=== PATIENT | female | born 1970 | race Hispanic/Latino ===

== ENCOUNTER 2020-08-14 21:44 | Emergency (ER) | payer OTHER ==
--- OUTSIDE RECORDS SUMMARY | 2020-08-14 21:47 | XMS REPORT | Continuity of Care Document ---
:1970 Author Organization [facility] t Address [address] [place] [address] Care Team Providers Name Role Phone Elliott Hernandez DO Primary Care Physician Donita Qugiley RN Attending Clinician Unavailable Pcp, Does Not Have A Attending Clinician Lab, Fam Pob I Attending Clinician Unavailable Problems Condition Condition Condition Status Onset Resolution Last Treating Co mments Source Name Details Category Date Date Treatment Clinician Date Cellulitis Cellulitis Disease Active [place] of right of right 04-22 Method i upper upper 00:00: st extremity extremity 00 Allergies, Adverse Reactions, Alerts Allergy Allergy Status Severity Reaction(s) Onset Inactive Treating Comm ents Source Name Type Date Date Clinician Nuvia Jackson Active Other (See Seizures [place] perazine ty to Comments) 04-22 Metho di adverse 00:00: st reaction 00 s to drug Compazin Adverse [facility] Social History Social Habit Start Date Stop Date Quantity Comments Source Sex Assigned At [facility] ethodist Alcohol intake 2016-10-16 2016-10-16 [facility] 00:00:00 non-drinker of alcohol (finding) Smoking Status Start Date Stop Date Source Never smoker Willi quintero Medications Ordered Filled Start Stop Current Ordering Indication Dosage Frequency Signature Comments Components Source Medication Medication Date Date Medication? Clinician (SIG) Name Name ALPRAZolam 2015-07 Yes .5mg QD Take 0.5 [place] (XANAX) 0.5 0-10 mg by Methodi MG tablet 16:40: mouth st 19 daily. metoprolol 2015-07 Yes 50mg QD Take 50 mg [place] succinate 0-10 by mouth Method i XL 16:40: daily. st (TOPROL-XL) 19 50 MG 24 hr tablet traMADol 2015-07 Yes 50mg Q6H Take 50 mg [place] (ULTRAM) 50 0-10 by mouth Meth margarette mg tablet 16:40: every 6 st 19 (six) hours as needed for moderate pain ((Alternat ing with Tylenol w/cod)). acetaminoph 2015-07 Yes 1{tbl} Q6H Take 1 [place] en-codeine 0-10 tablet by Meth margarette (TYLENOL 16:40: mouth st #3) 300-30 19 every 6 mg per (six) tablet hours as needed for moderate pain ((Alternat ing with Tramadol)) . Gabapentin Gabapentin Yes Rico TK [address] [facility] TID UTD [facility] Losartan Losartan Yes Rico TK [address] [facility] Potassium Potassium [facility] QD [facility] Vitamin D Vitamin D Yes Rico TK [address] [facility] (Ergocalcif (Ergocalcif Rollins Q WK [facility] Bisoprolol- Bisoprolol- Yes Rico TK [address] [facility] Hydrochloro Hydrochloro Rollins QD [facility]ide th[facility]ide [facility] Lorazepam Lorazepam Yes Rico [address] [facility] Fluticasone Fluticasone Yes Rico SHAKE LQ [facility] Propionate Propionate Rollins AND U 1 [facility] QD [facility] IN THE l MORNING Outpati ent Clinics Duloxetine Duloxetine Yes Rico [address] [facility] HCl HCl [facility] Procedures This patient has no known procedures. Plan of Care Planned Activity Planned Date Details Comments Source Future Scheduled 2020-02-23 INFLUENZA VACCINE [place] [facility] 00:00:00 [code = INFLUENZA VACCINE] Future Scheduled 2019 BREAST CANCER [facility] thodist Test 00:00:00 SCREENING [code = BREAST CANCER SCREENING] Future Scheduled 2019 COLONOSCOPY SCREENING [place] [facility] Test 00:00:00 [code = COLONOSCOPY SCREENING] Future Scheduled 2019 SHINGLES VACCINES [place] [facility] 00:00:00 (#1) [code = SHINGLES VACCINES (#1)] Future Scheduled 1990 Screening for [facility] thodist Test 00:00:00 malignant neoplasm of cervix (procedure) [code = 763719378] Future Scheduled 1985 COVID-19 VACCINE (1 [place] [facility] Test 00:00:00 of 2) [code = COVID-19 VACCINE (1 of 2)] Encounters Start End Encounter Admission Attending Care Care Encounter Source Date/Time Date/Time Type Type Clinicians Facility Department ID 2020-08-04 2020-08-04 Outpatient [facility] [id number] [facility]00 [facility] 2020-07-08 2020-07-08 Letter KEANU Quigley [id number] 00:00:00 00:00:00 (Out) Donita ORTIZ [id number] HOSPITAL [id number] 2020-07-08 2020-07-08 Telephone PcpKEANU [id number] 00:00:00 00:00:00 Patient DIANA [id number] Does Not HOSPITAL [id number] Have A [id number] 2020-07-06 2020-07-06 Laboratory Lab, [facility] [id number] 13:35:14 13:55:14 Only Fam Pob I Health [id number] Critz [id number] Professio [id number] nal [address] 2020-06-16 2020-06-16 [facility] [id number] [facility] 2020-05-27 2020-05-27 [facility] [id number] [facility] 2020-03-27 2020-03-27 [facility] [id number] [facility] 13:20:00 13:20:00 t [employer] [facility] Medicine Medicine Outpati ent Clinics 2020-01-23 2020-01-23 [facility] [id number] 14:30:00 14:30:00 t [facility] Medicine Outpati ent Clinics 2019-12-26 2019-12-26 [facility] [id number] 15:14:00 15:14:00 t [employer] [facility] Medicine Outpati ent Clinics 2019-12-26 2019-12-26 [facility] [id number] 14:45:00 14:45:00 t [employer] [facility] Medicine Outpati ent Clinics 2019-12-06 2019-12-06 [facility] [id number] 13:30:00 13:30:00 t [employer] [facility] Medicine Outpati ent Clinics 2019-11-23 2019-11-23 [facility] [id number] 14:15:00 14:15:00 t [employer] [facility] Medicine Outpati ent Clinics 2019-11-22 2019-11-22 [facility] [id number] 15:37:00 15:37:00 t [facility] Immediately [employer] [facility] Medicine Outpati ent Clinics 2019-11-20 2019-11-20 [facility] [id number] 13:20:00 13:20:00 [facility] Medicine Outpat[facility] Clinics Results This patient has no known results.
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
--- OUTSIDE RECORDS SUMMARY | 2020-08-14 21:47 | XMS REPORT | Summary of Care ---
:1970 Author Organization [facility] Address [address] [place] [address] Care Team Providers Name Role Phone Robert Robertson Primary Care Provider Reason for Visit Reason Comments LAB covid testing- exposure Encounter Details Date Type Department Care Team Description 07/06/2020 Laboratory Only [facility] Family David, Sadia, ELECTRONICS RESEARCH ENGINEER [address] [place] [address] Exposure to Medicine - [facility], Adc Fam Pob I SARS-associated [address] [facility] coronaviru s ([address] Drive Dx) [place] [address] Allergies Active Allergy Reactions Severity Noted Date Comments Prochlorperazine Other - See comments 03/09/2013 bakari ji documented as of this encounter (statuses as of 07/06/2020) Medications Medication Sig Dispensed Refills Start Date End Date Status itraconazole 100 mg Take 100 mg by 0 Active capsule mouth 2 (two) times daily with meals. tramadol-acetaminophe Take 1 tablet by 0 Active n 37.5-325 mg per mouth every 8 tablet (eight) hours as needed for Pain. ERGOCALCIFEROL, Take 1 tablet by 0 Active VITAMIN D2, (VITAMIN mouth weekly. D ORAL) metoprolol tartrate Take 100 mg by 0 Active 100 mg tablet mouth daily. proMETHazine 25 mg Take 1 tablet by 12 tablet 0 12/25/2016 Active tablet mouth every 6 (six) hours as needed for Nausea and Vomiting (N/V). ranitidine (ZANTAC) Take 1 tablet by 30 tablet 1 12/25/2016 Active 150 mg tablet mouth 2 (two) times daily. Follow up with your MD for further evaluation and treatment. acetaminophen-codeine Take 1 tablet by 20 tablet 0 12/25/2016 Active (TYLENOL-CODEINE #3) mouth every 6 (six) 300-30 mg tablet hours as needed for Pain (scale 4-6) (for cough). documented as of this encounter (statuses as of 07/06/2020) Active Problems Problem Noted Date HELDER favor benign 10/31/2013 Abnormal glandular Papanicolaou smear of cervix 2013 Overview: Atypical glandular with positive HPV. colpo done 11/01/2013 Positive HPV 09/26/2013 Overview: 6 month repeat pap smear Generalized anxiety disorder 03/09/2013 Tubal ligation status 03/09/2013 Insomnia 03/09/2013 documented as of this encounter (statuses as of 07/06/2020) Resolved Problems Problem Noted Date Resolved Date Papanicolaou smear of cervix with atypical squamous cells of 03/15/2013 11/01/2013 undetermined significance (ASC-US) Overview: Repeat pap smear at 6 (08/2013) and 12 m [facility] Encounter for routine gynecological examination 03/09/2013 11/01/2013 Overview: Medical records received. [facility]- 11[facility]2011. CT scan shows 3cm right ovarian cyst. Referral written for pelvic US -04/12/20 13. ICD10 Diagnosis Term Ehs Manager Utility Essential hypertension 03/09/2013 09/21/2013 Overview: ICD10 Diagnosis Term Ehs Manager Utility Need for prophylactic vaccination with combined 03/09/2013 09/21/2013 gaythhdjfd-gfakkmo-fljhcblxq (DTP) vaccine documented as of this encounter (statuses as of 07/06/2020) Immunizations Name Administration Dates Next Due TDAP 03/09/2013 Td 03/09/2001 documented as of this encounter Social History Tobacco Use Types Packs/Day Years Used Date Never Smoker Smokeless Tobacco: Never Used Alcohol Use Drinks/Week oz/Week Comments No Sex Assigned at Date Recorded Not on file COVID-19 Exposure Response Date Recorded In the last month, have you been in contact with Yes 07/06/2020 1:39 PM BANQUET LEAD someone who was confirmed or suspected to have Coronavirus / COVID-19? documented as of this encounter Last Filed Vital Signs Not on filedocumented in this encounter Nursing Notes Lulú Fernandez MA - 07/06/2020 1:40 PM CSTAdrimilton López is a 49 year old female here for COVID Screening with a Nasopharyngeal Swab All droplet and contact precautions taken with appropriate PPE worn while interacting with patient. ? Goggles ? N95 Mask ? Gloves ? Gown Patient educated on plan of care for visit, swabbing technique, risks and benefits of test and length of time to receive results. Verbal consent obtained to perform test. CDC Fact Sheet for Patients nCoV Diagnostic Panel dated 10/07/2019 and Factsheet What to Do if Sick with COVID 19 09/17/19 provided. Patient swabbed per appropriate nasopharyngeal technique, and patient tolerated well. Patient was discharged from the testing clinic in stable condition. Lulú Quinones MA 07/06/2020 1:39 PM Bilate nares swabbed during COVID19 nasopharyngeal swab. UET LEAD documented in this encounter Plan of Treatment Name Type Priority Associated Diagnoses Order S chedule COVID-19 (MOLECULAR LAB Routine Exposure to Expected : 07/06/2020, TESTING SARS-associated Expires: 021 NUCLEIC ACID coronavirus AMPLIFICATION) documented as of this encounter Results Not on filedocumented in this encounter Visit Diagnoses Diagnosis Exposure to SARS-associated coronavirus - Primary documented in this encounter Additional Health Concerns Infection Onset Date Last Indicated Resolved Time COVID-19 Rule Out 07/06/2020 07/06/2020 documented as of this encounter Insurance Payer Benefit Plan / Subscriber ID Effective Dates Phone Addre ss Type Group [facility] [place] [facility] [id number] 2016-Present Medicaid HEALTH PLAN - HEALTH MANAGED MEDICAID documented as of this encounter
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
--- OUTSIDE RECORDS SUMMARY | 2020-08-14 21:47 | XMS REPORT | Clinical Summary ---
:1970 Author Organization [facility] Address [address] [place] [address] Care Team Providers Name Role Phone Elliott Hernandez DO Primary Care Provider Allergies Active Allergy Reactions Severity Noted Date Comments Prochlorperazine Other (See Comments) High 04/22/2016 Vitaliy ji Medications Medication Sig Dispensed Refills Start Date End Date Status ALPRAZolam (XANAX) Take 0.5 mg by 0 Active 0.5 MG tablet mouth daily. metoprolol succinate Take 50 mg by mouth 0 Active XL (TOPROL-XL) 50 MG daily. 24 hr tablet traMADol (ULTRAM) 50 Take 50 mg by mouth 0 Active mg tablet every 6 (six) hours as needed for moderate pain ((Alternating with Tylenol w/cod)). acetaminophen-codeine Take 1 tablet by 0 Active (TYLENOL #3) 300-30 mouth every 6 (six) mg per tablet hours as needed for moderate pain ((Alternating with Tramadol)). Active Problems Problem Noted Date Cellulitis of right upper extremity 04/22/2016 Surgical History Surgery Date Site/Laterality Comments TONSILLECTOMY ABDOMINAL SURGERY gallstones rem bebeto INCISION AND DRAINAGE, LOWER 04/28/2016 Right Pro cedure: EXCISIONAL EXTREMITY DEBRIDEMENT OF R IGHT UPPER EXTREMITY ESCHAR /ULCER, POSSIBLE V.A.C P LACEMENT; Surgeon: Evette Dempsey MD; Location: [facility]; Service: General ; Laterality: Righ t; Medical History Medical History Date Comments Hypertension Clavicle fracture Rib fractures Gallstone Social History Tobacco Use Types Packs/Day Years Used Date Never Smoker Alcohol Use Drinks/Week oz/Week Comments No Sex Assigned at Date Recorded Not on file Last Filed Vital Signs Not on file Plan of Treatment Health Maintenance Due Date Last Done Comments COVID-19 VACCINE (1 of 2) 1985 CERVICAL CANCER SCREENING 1990 BREAST CANCER SCREENING 2019 COLONOSCOPY SCREENING 2019 SHINGLES VACCINES (#1) 2019 INFLUENZA VACCINE 02/23/2020 Implants Implanted Type Area Phd Intern Device Identifier Shelf Exp iration Model / Date Serial / L ot Breast Implants Results Not on fileafter 08/14/2019 Insurance Payer Benefit Plan / Subscriber ID Effective Dates Phone Addre ss Type Group [facility] [id number] 2016-Present [facility] Advance Directives For more information, please contact: [phone] Type Date 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
--- OUTSIDE RECORDS SUMMARY | 2020-08-14 21:48 | XMS REPORT | Summary of Care ---
:1970 Author Organization [facility] Address [address] [place] [address] Care Team Providers Name Role Phone Robert Robertson Primary Care Provider Encounter Details Date Type Department Care Team Description 07/08/2020 Letter (Out) [facility] Donita Quigley, IVÁN [address] [place] [phone] [place] [address] Allergies Active Allergy Reactions Severity Noted Date Comments Prochlorperazine Other - See comments 03/09/2013 bakari ji documented as of this encounter (statuses as of 07/08/2020) Medications Medication Sig Dispensed Refills Start Date [...] as of this encounter (statuses as of 07/08/2020) Active Problems Problem Noted Date HELDER favor benign 10/31/2013 Abnormal glandular Papanicolaou smear of cervix 2013 Overview: Atypical glandular with positive HPV. colpo done 11/01/2013 Positive HPV 09/26/2013 Overview: 6 month repeat pap smear Generalized anxiety disorder 03/09/2013 Tubal ligation status 03/09/2013 Insomnia 03/09/2013 documented as of this encounter (statuses as of 07/08/2020) Resolved Problems Problem Noted Date Resolved Date Papanicolaou smear of cervix with atypical squamous cells of 03/15/2013 11/01/2013 undetermined significance (ASC-US) Overview: Repeat pap smear at 6 (08/2013) and 12 m [facility] Encounter for routine gynecological examination 03/09/2013 11/01/2013 Overview: Medical records received. [facility]- 11/2011. CT scan shows 3cm right ovarian cyst. Referral written for pelvic US -04/12/20 13. 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 Need for prophylactic vaccination with combined 03/09/2013 09/21/2013 uvpqeckgyo-[id number] (DTP) vaccine documented as of this encounter (statuses as of 07/08/2020) Immunizations Name Administration Dates Next Due TDAP 03/09/2013 Td 03/09/2001 documented as of this encounter Social History Tobacco Use Types Packs/Day Years Used Date Never Smoker Smokeless Tobacco: Never Used Alcohol Use Drinks/Week oz/Week Comments No Sex Assigned at Date Recorded Not on file COVID-19 Exposure Response Date Recorded In the last month, have you been in contact with Yes 07/06/2020 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 documented as of this encounter Last Filed Vital Signs Not on filedocumented in this encounter Plan of Treatment Health Maintenance Due Date Last Done Comments Depression Screening 1981 Breast Cancer Screening 04/30/2014 04/30/2013 (MAMMOGRAM) PAP SMEAR 09/21/2016 09/21/2013, 03/09/2013 COLON CANCER SCREENING ANNUAL 2019 FIT/FOBT COLON CANCER SCREENING FIT DNA 2019 EVERY 3 YEARS COLON CANCER SCREENING 2019 SIGMOIDOSCOPY EVERY 5 YEARS COLONOSCOPY 2019 Colorectal Cancer Screening 2019 Zoster Recombinant Vaccine 2019 (SHINGRIX) (1 of 2) INFLUENZA VACCINE (#1) 2020 DTaP,Tdap,and Td Vaccines (2 - 03/09/2023 03/09/2013, Td) 03/09/2001 PNEUMOCOCCAL 0-64 YEARS Aged Out No longe r eligible based COMBINED SERIES on patient's age to complete this to pic documented as of this encounter Results Not on filedocumented in this encounter Insurance Payer Benefit Plan / Subscriber ID Effective Dates Phone Addre ss Type Group [place] [facility] [place] [id number] 2016-Present Medicaid HEALTH PLAN - HEALTH MANAGED MEDICAID documented as of this encounter
--- OUTSIDE RECORDS SUMMARY | 2020-08-14 21:48 | XMS REPORT | Summary of Care ---
:1970 Author Organization [facility] Address [address] [place] [address] Care Team Providers Name Role Phone Robert Robertson Primary Care Provider Reason for Visit Reason Comments Results text covid results Encounter Details Date Type Department Care Team Description 07/08/2020 Telephone [facility] Pcp, Patient Does Results (text covid [address] [place] [address] Not Have A results) [address] [facility] [place], [place] [phone] Allergies Active Allergy Reactions Severity Noted Date [...] smear at 6 (08/2013) and 12 m [facility] Encounter for routine gynecological examination 03/09/2013 11/01/2013 Overview: Medical records received. [facility]- 11/2011. CT scan shows 3cm right ovarian cyst. Referral written for pelvic US -04/12/20 13. 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 documented as of this encounter Last Filed Vital Signs Not on filedocumented in this encounter Miscellaneous Notes Telephone Encounter - Donita Quigley RN - 07/08/2020 12:53 PM [facility] SARS-CoV-2 NAAT Not Detected Not Detected Letter mailed. I informed the patient of her results. Donita Rojas elephone Encounter - Mikaela Arroyo - 07/08/2020 12:47 PM CSTAdrimilton López is a 49 year old female patient is calling and would like to get a text on the covid 19 results. documented in this encounter Plan of Treatment Health [...] Effective Dates Phone Addre ss Type Group [place] [facility] [place] [id number] 2016-Present Medicaid HEALTH PLAN - HEALTH MANAGED MEDICAID documented as of this encounter
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
--- NOTE | 2020-08-14 22:38 | ER ---
Nurse's Notes [facility] Name: Radha López Age: 50 yrs Sex: Female : 1970 Arrival Date: 08/14/2020 Time: 21:56 Bed External Waiting Private MD: Diagnosis: Presentation: 08/14 21:58 Acuity: KIN 3 sg Vital Signs: 21:57 Pulse 89; Resp 20 S; Pulse Ox 99% on R/A; sg ED Course: 21:56 Patient arrived in ED. es 21:58 Triage completed. sg Administered Medications: No medications were administered Outcome: 22:38 Patient left the ED. sg Signatures: Raciel Gruber RN RN sg Regina Lema
[2020-08-14 23:06] VITALS: O2SAT 99
== END 2020-08-14 22:38 | disposition left against medical advice (07) ==
LOC: ER 21:44
DX: Z53.21 Procedure and treatment not carried out due to patient leaving prior to being seen by health care provider (principal)
CPT/HCPCS: 99281

== ENCOUNTER 2020-10-14 09:28 | Day surgery (SDC) | payer OTHER ==
[2020-10-08 12:10] LABS: Urine Appearance CLOUDY; Urine Blood NEGATIVE (NEG); Urine Color YELLOW; Urine Glucose NEGATIVE (NEG); Urine Protein NEGATIVE (NEG); Urine Urobilinogen 0.2 mg/dL (0.2-1.0)
[2020-10-08 12:12] LABS: Urine Bilirubin 1+ (NEG); Urine Microscopic Reflex ORDER UMIC
[2020-10-08 12:15] LABS: Basophils % 0.2 % (0-1.3); Hematocrit 38.5 % (36.0-45.0); Lymphocytes % 38.9 % (15.3-44.8); MPV 9.3 fL (7.6-11.3); RBC Red Blood Cell Count 4.37 M/uL (3.86-4.86)
[2020-10-08 12:59] LABS: Urine Bacteria >50 /HPF (<20); Urine Mucus LIGHT /HPF (NONE SEEN); Urine RBC <5 /HPF (NONE SEEN)
[2020-10-14] MEDS ORDERED: Ringers Lactate 1,000 ML IV ONE (10:03)
[2020-10-14] MEDS ORDERED: CEFAZOLIN/SWI 2gm 2 GM/20 ML SYR ONE (10:16)
[2020-10-14] MEDS ORDERED: MIDAZOLAM HCL 2 MG/2 ML INJ ONE (11:59)
[2020-10-14] MEDS ORDERED: LIDOCAINE JELLY 2% 5 ML SYRINGE TOP ONE (12:09)
[2020-10-14] MEDS ORDERED: LIDOCAINE 1% MPF 5 ML VIAL ONE (12:11)
[2020-10-14] MEDS ORDERED: propofoL 200 MG/20 ML VIAL IV ONE (12:11)
[2020-10-14] MEDS ORDERED: FENTANYL CITR 100 MCG/2 ML ONE (12:11)
[2020-10-14] MEDS ORDERED: KETOROLAC 30 MG/ML INJ ONE (12:30)
[2020-10-14] MEDS ORDERED: dexAMETHasone 10 MG/ML VIAL ONE (12:30)
[2020-10-14] MEDS ORDERED: ONDANSETRON 4 MG/2 ML VIAL ONE (12:36)
[2020-10-14] MEDS ORDERED: EPHEDRINE SULF 50 MG/ML VIAL ONE (12:39)
[2020-10-14] MEDS ORDERED: NS 0.9% VIAL 10 ML ONE (12:39)
[2020-10-14] MEDS ORDERED: ACETAMINOPHEN 500 MG TAB ONE (14:30)
[2020-10-14 14:45] VITALS: TEMP 97; O2SAT 98
[2020-10-14 14:48] VITALS: BP 142/83
--- NOTE | 2020-10-16 00:27 | OP ---
Date of Procedure: 10/14/2020 Surgeon: Donna Gan MD Preoperative Diagnosis: Stress urinary incontinence. Postoperative Diagnosis: Stress urinary incontinence. Procedure: Cystourethroscopy and urethral bulking with Bulkamid. Anesthesia: General with LMA. Specimens: No specimens. Complications: No complications. Drains: No drains. Condition: Stable. 1.2 mL of the Bulkamid was used for this patient and an adequate cushion around the urethra was obtai kindra. Indications: The patient is a 50-year-old female with stress urinary incontinence significant enough to cause problems. Very clear positive cough stress test was noted in the office. The patient karissa red to have a minimally invasive treatment. Kegel's have been discussed with biofeedback . However, despite this, the patient has been unable to control the urinary leakage. She had urodyna teresa testing done about 2 years ago. Her complaint has continued to be progressively worse. At that time, her maximal urethral closure pressure was 140 and so we had just waited and conservatively mike ged her, but currently she does have significant strings on the cough stress test and hypermobility w as noted as well. Discussed about the different options including pelvic floor physical therapy, con tinued observation with Kegel's, urethral bulking as well as mid urethral sling. Patient wanted to p roceed with the urethral bulking. After understanding the benefits and risks, she was consented and she was brought to the OR. Procedure In Detail: 2 g of Ancef were given preop and she was taken back to the OR, placed in a sup ine fashion. General anesthesia was given. Placed in a dorsal lithotomy position using Joe stirru ps. Vulva, vagina, and perineum prepped and draped in a sterile fashion. . A regular cys toscope, 17-Korean sheath, 30-degree lens was used with normal saline to perform a cystourethroscopy after the bladder was filled to 300 mL. The base of the bladder trigone, both ureteric orifices, dom e of the bladder, both lateral benson and urethra were all well inspected. No evidence of any tumors, diverticula, or stones. The bladder was then drained. Then Bulkamid rigid cystoscope was taken wit h the standard light cable and 1 L normal saline back with a drip stand, was set up. K-Y Jelly was a pplied to the tip of the sheath and then the sheath and the scope were introduced into the urethra. The water inflow was adjusted to produce an adequate stream. The needle was then placed 3/4 of the w ay into the needle channel of the rotatable sheath without exposure outside the tip and then entire s ystem was then advanced into the urethra until the bladder was visualized and inspected. The Bulkami d needle was then advanced into the needle channel on the rotatable sheath until the tip of the sheat h was adjusted into the bladder neck. The sheath was then rotated to 5 o'clock position. The needle was then extended into the bladder until 2 cm dk on the needle was visible. Then, the Bulkamid sy stem was retracted until the tip of the needle was resting on the bladder neck. The needle was then retracted into the sheath and approximately 1.5 cm from the bladder neck, the Bulkamid system was the n pressed parallel against the urethral wall. The needle was advanced then into submucosal tissue en suring that the bevel of the needle was facing towards the lumen. The needle was advanced approximat valery 0.5 cm and Bulkamid Hydrogel was then injected until the cushion was visible and reached the midl ine of the urethral lumen. The needle was then retracted back. The rotatable sheath was turned to t he next injection site at 2 o'clock, then later another cushion at 10 o'clock and then at 7 o'clock. All along the same plane as the original injection and to allow for cushions and same to meet at the midline. Then, I was able to have 2 further injections in between the planes at 8 o'clock and 1 o'c lock. About 1.2 to 1.4 mL of the Hydrogel was used. The bladder was drained. At the end of the pro cedure, there was some bleeding at the site of injection at 10 o'clock. It was a small trickle. The procedure was well tolerated. EBL was minimal. The patient was recovered from anesthesia after the instruments were removed and instrument, needle, and sponge counts were done and were correct. She was taken to the PACU in stable condition. She was transferred to the recovery room and instruction sheet to contact office for any urinary rete ntion or difficulty of urinating. Warned about urinary tract infection symptoms, lower urinary tract symptoms as dysuria. She also is consulted about the potential for top of procedure if the desired effect was not achieved. She has a followup appointment for a voiding trial as well as an appointmen t to evaluate improvement. ADEBAYO Voice ID: [id number] Report ID: [id number]
== END 2020-10-14 14:40 | disposition home or self-care (01) ==
LOC: OR 09:28
PROVIDERS: ATTEND Obstetrics & Gynecology
PROC: 0TVD8ZZ Restriction of Urethra, Via Natural or Artificial Opening Endoscopic (ICD-10-PCS; principal; 2020-10-14 10:30)
DX: N39.3 Stress incontinence (female) (male) (principal); N95.1 Menopausal and female climacteric states; I49.9 Cardiac arrhythmia, unspecified; F41.9 Anxiety disorder, unspecified; Z20.822 Contact with and (suspected) exposure to COVID-19
CPT/HCPCS: 85025; 36415; 86900; 86850; 86901; 52327; U0002; J2704; J2250; J3010; J1100; J0690; J7120; J2405; 81003; 81015; L8606